=== PATIENT | male | born 2000 | race Caucasian/White ===

== ENCOUNTER 2022-04-14 21:15 | Emergency (ER) | payer OTHER ==
[~2022-04-14] VITALS: Ht 182.9 cm; Wt 65.3 kg
[2022-04-14] MEDS ORDERED: IBUP-2070 PO (22:22)
[2022-04-14] MEDS ORDERED: ACET-2079 PO (22:22)
[2022-04-14] MEDS ORDERED: AMOX-426 PO (22:22)
[2022-04-14] MEDS ORDERED: KETOROLAC 60 MG VIAL (30MG/ML) IM ONE (22:30)
[2022-04-14] MEDS ORDERED: HYDROCODONE/ACETAMINOPHEN 5/325 MG TAB PO ONE (22:30)
[2022-04-14] MEDS ORDERED: AMOX/CLAV 875/125MG TAB PO ONE (22:30)
[2022-04-14 22:43] VITALS: BP 139/81
== END 2022-04-14 22:43 | disposition home or self-care (01) ==
LOC: EDH 21:15
DX: S02.5XXA Fracture of tooth (traumatic), initial encounter for closed fracture (principal); K04.7 Periapical abscess without sinus; Z79.899 Other long term (current) drug therapy; X58.XXXA Exposure to other specified factors, initial encounter; Y93.89 Activity, other specified; Y92.89 Other specified places as the place of occurrence of the external cause; Y99.8 Other external cause status
CPT/HCPCS: 99283; 96372; J1885